=== PATIENT | female | born 1975 | race Caucasian/White ===

== ENCOUNTER 2016-04-17 21:37 | Emergency (ER) | payer OTHER ==
[~2016-04-17] VITALS: Wt 93.5 kg
--- NOTE | 2016-04-18 00:18 | ERD ---
ER Documentation Chief Complaint Date/Time DATE: 04/18/16 TIME: 00:18 Chief Complaint right arm pain, box fell on arm 1 month ago HPI 41-year-old female presents with chief complaint of bilateral arm pain times x month. She states that at times she feels numbness in her fingers and a tingling sensation. She reports that she had a work injury in January when a box fell on her arm however symptoms of that injury resolved and she had already seen a provider at that time. She says that this symptom is new. Associated symptoms include mild neck pain. She denies loss of range of motion, loss of bowel control, urinary incontinence, lower extremity/saddle paresthesia , erythema, swelling, fever, slurring of speech, altered mental status, and recent trauma. She has has not taken any medications for relief of her symptoms. States the pain is aggravated by raising her arm. ROS All systems reviewed and are negative except as per history of present illness. Medications Home Meds Active Scripts Naproxen* (Naprosyn*) 500 Mg Tablet, 500 MG PO BID for 15 Days, #30 TAB Prov:Juliann Cordova PA-C 04/18/16 Cyclobenzaprine Hcl* (Cyclobenzaprine Hcl*) 10 Mg Tablet, 10 MG PO Q8 Y for MUSCLE SPASMS, #20 TAB Prov:Juliann Cordova PA-C 04/18/16 Methylprednisolone* (Medrol* DOSE PACK) 4 Mg/Dose-Pack Tab.ds.pk, 4 MG PO . DIRECTED for 5 Days, #1 PACKET Prov:Juliann Cordova PA-C 04/18/16 Allergies Allergies: Coded Allergies: No Known Drug Allergies (Verified Allergy, Unknown, 04/17/16) PMhx/Soc History of Surgery: Yes ( X2) Anesthesia Reaction: No Hx Neurological Disorder: No Hx Respiratory Disorders: No Hx Cardiac Disorders: Yes (HTN) Hx Psychiatric Problems: No Hx Miscellaneous Medical Probl: No Hx Alcohol Use: Yes Hx Substance Use: No Hx Tobacco Use: Yes (3- 4CIGARETTES/DAY) Smoking Status: Current every day smoker Physical Exam Vitals Vital Signs Date Time Temp Pulse Resp B/P Pulse Ox O2 Delivery O2 Flow Rate FiO2 04/18/16 00:40 98.5 75 18 112/71 100 Room Air 04/17/16 21:41 98.5 80 20 138/78 100 Physical Exam GENERAL: Non-toxic. No apparent signs of distress. HEENT: Atraumatic. Bilateral eyes are PERRL EOM intact. Normal conjunctiva, no injection. No eyelid or lower eyelid swelling noted. Ears: Normal tympanic membrane, no erythema or bulging. No ear canal swelling. No ear discharge. Nose : no nasal discharge. Throat: Oropharynx normal. Tongue pink and moist. No tonsillar swelling or tonsillar exudates. No lymphadenopathy. LUNGS: Clear to auscultation. No accessory muscle use. No wheezing, no crackles. No signs or symptoms of respiratory distress. HEART: Regular rate and rhythm. No murmurs, clicks, rubs or gallops. ABDOMEN: Soft, nontender and nondistended. Bowel sounds positive. No rebound or guarding. No gross peritoneal signs. No Talley or McBurney point tenderness. No gross masses. BACK: No midline tenderness, no costovertebral tenderness. Tenderness to palpation over left trapezius. No ecchymosis, erythema or crepitus in this area. EXTREMITIES: No peripheral cyanosis or edema. No focal pain or notable trauma. Full range of motion. Pain with straight arm raise on left side . 2+ radial pulses bilaterally. Good capillary refill. NEURO: 5 out of 5 fiscal accounting clerk strength bilateral hands. The patient moves all 4 extremities with 5/5 strength. Cranial nerves are grossly intact. Normal mental status for age. Good muscle tone. SKIN: There is no apparent rash, petechiae, erythema or swelling. Good skin turgor. Results 24 hrs Current Medications Medications (Trade) Dose Ordered Sig/Mg Route PRN Reason Start Time Stop Time Status Last Admin Dose Admin Acetaminophen/ Hydrocodone Bitart ([place] (5/325)) 1 tab ONCE ONCE PO 04/18/16 00:30 04/18/16 00:31 DC 04/18/16 00:31 Procedures/MDM Patient stated that her symptoms of an ongoing for 1 month. She reports mild neck pain and on exam of tenderness over the left trapezius in addition she has tenderness with straight arm raise on the left side area. She reports intermittent tingling and numbness in her left hand. However her neurological exam is normal, she has no neurologic deficits. Bilateral 5 strain and bilateral upper extremities and 5 out of 5 fiscal accounting clerk strength bilaterally. She has no signs of neurovascular compromise, 2+ radial pulses bilaterally with good capillary refill. She has had no recent trauma in the areas, and imaging is not warranted at this time. Patient's symptoms and physical exam findings are consistent with cervical radiculopathy and possible muscle spasm/strain. I explained to her that an MRI or CT scan will not be ordered in the ER today, based on the fact that the patient's symptoms are chronic in nature and not due to traumatic injury. I suggested that she follow up with PCP for referral to ortho for further workup. However this time due to exacerbation of her radiculopathy I explained that the providing a short dose of steroids to give her symptomatic relief. In addition I'll be giving a muscle relaxant an NSAID for relief of her pain and possible muscle spasm over left trapezius, - Medrol Dosepak for cervical radiculopathy - Naproxen for pain relief - Flexeril for muscle spasm, sedating effects of this medication were discussed and patient advised to not drive or operate heavy machinery while taking it. At this time I have low suspicion for cord compression, cauda equina syndrome, fracture, dislocation, CVA, neurovascular compromise, and compartment syndrome. Patient is stable for discharge and outpatient management. Advised to follow-up with PCP for orthopedic referral in one to 2 days. Departure Diagnosis: Primary Impression: Bilateral arm pain Additional Impressions: Cervical radiculopathy Muscle spasm Condition: Good Patient Instructions: Muscle Spasm, Radiculopathy, Cervical Juliann Cordova PA-C Apr 18, 2016 00:18
[2016-04-18] MEDS ORDERED: CYCL-319 PO (00:22)
[2016-04-18] MEDS ORDERED: NAPR-260 PO (00:22)
[2016-04-18] MEDS ORDERED: MED4DP PO (00:22)
[2016-04-18] MEDS ORDERED: HYDROCODONE/APAP (5/325) TAB PO ONE (00:30)
[2016-04-18 00:40] VITALS: BP 112/71; PULSE 75; RESP 18; TEMP 98.5
== END 2016-04-18 00:41 | disposition home or self-care (01) ==
LOC: FTE 21:37
DX: M79.601 Pain in right arm (principal); F17.210 Nicotine dependence, cigarettes, uncomplicated; I10 Essential (primary) hypertension; M54.12 Radiculopathy, cervical region
CPT/HCPCS: Z7502; Z7610; 99284

== ENCOUNTER 2016-08-31 13:49 | Emergency (ER) | payer OTHER ==
[~2016-08-31] VITALS: Ht 162.6 cm; Wt 90.0 kg
[~2016-08-31 13:49] MED LIST: CYCL-319 PO; MED4DP PO; NAPR-260 PO
[2016-08-31 13:55] VITALS: Ht 162.6 cm; Wt 90.0 kg
[2016-08-31] MEDS ORDERED: SOD CHLORIDE 0.9% 500 ML IV STA (14:19)
[2016-08-31] MEDS ORDERED: LORAZEPAM 2 MG INJ IV ONE (14:30)
[2016-08-31 14:46] LABS: ADD SCAN DIFF NO
[2016-08-31 14:48] LABS: BASOPHIL # 0.1 10^3/ul (0.0-0.1); BASOPHILS % 0.8 % (0.0-2.0); EOSINOPHILS # 0.1 10^3/ul (0.0-0.5); EOSINOPHILS % 1.1 % (0.0-7.0); HEMOGLOBIN 13.8 g/dl (12.0-16.0); LYMPHOCYTES # 2.1 10^3/ul (0.8-2.9); LYMPHOCYTES % 33.8 % (15.0-51.0); MEAN CORPUSCULAR HEMOGLOBIN 28.2 pg (29.0-33.0); MEAN CORPUSCULAR HGB CONC 32.9 g/dl (32.0-37.0); MEAN CORPUSCULAR VOLUME 85.7 fl (82.0-101.0); MEAN PLATELET VOLUME 9.8 fl (7.4-10.4); MONOCYTE # 0.6 10^3/ul (0.3-0.9); NEUTROPHIL # 3.4 10^3/ul (1.6-7.5); PLATELET COUNT 329 10^3/UL (140-415); RED CELL DISTRIBUTION WIDTH 13.9 % (11.5-14.5); WHITE BLOOD COUNT 6.1 10^3/ul (4.8-10.8)
[2016-08-31 15:09] LABS: CALCIUM 9.4 mg/dl (8.4-10.2); CREATININE 0.71 mg/dl (0.44-1.00); POTASSIUM 4.1 mmol/L (3.5-5.1)
--- NOTE | 2016-08-31 15:15 | ERD ---
ER Documentation Chief Complaint Date/Time DATE: 08/31/16 TIME: 15:13 Chief Complaint Hyperventilation with no obvious cause. HPI tie cutter use. 41-year-old female no past medical history who presents to the emergency room with hyperventilation. EMS reports that the patient was eating just prior to arrival. Patient states that she started became lightheaded feeling anxious and short of breath. She was found hyperventilating with carpopedal spasms. The patient appears very anxious upon arrival. She denies any chest pain, no pleuritic pain no fevers or chills no abdominal pain, she does have chronic back pain that is unchanged. Mild social stressors at home but not significantly changed. ROS All systems reviewed and are negative except as per history of present illness. Medications Home Meds Discontinued Scripts Naproxen* (Naprosyn*) 500 Mg Tablet, 500 MG PO BID for 15 Days, #30 TAB Prov:Juliann Cordova PA-C 04/18/16 Cyclobenzaprine Hcl* (Cyclobenzaprine Hcl*) 10 Mg Tablet, 10 MG PO Q8 Y for MUSCLE SPASMS, #20 TAB Prov:Juliann Cordova PA-C 04/18/16 Methylprednisolone* (Medrol* DOSE PACK) 4 Mg/Dose-Pack Tab.ds.pk, 4 MG PO . DIRECTED for 5 Days, #1 PACKET Prov:Juliann Cordova PA-C 04/18/16 Allergies Allergies: Coded Allergies: No Known Drug Allergies (Verified Allergy, Unknown, 04/17/16) PMhx/Soc History of Surgery: Yes ( X2) Anesthesia Reaction: No Hx Neurological Disorder: No Hx Respiratory Disorders: No Hx Cardiac Disorders: Yes (HTN) Hx Psychiatric Problems: No Hx Miscellaneous Medical Probl: No Hx Alcohol Use: Yes Hx Substance Use: No Hx Tobacco Use: Yes (3- 4CIGARETTES/DAY) Smoking Status: Current every day smoker FmHx Family History: No diabetes Physical Exam Vitals Vital Signs Date Time Temp Pulse Resp B/P Pulse Ox O2 Delivery O2 Flow Rate FiO2 08/31/16 13:55 98.4 101 30 134/86 99 Physical Exam General: Initially anxious and hyperventilating but improving with time now conversive and talking on her cellular phone Head: Normocephalic, atraumatic. Eyes: Pupils equally reactive, EOM intact ENT: Moist mucous membranes Neck: Supple, no lymphadenopathy Respiratory: Lungs clear bilaterally, no distress Cardiovascular: RRR, no murmurs, rubs, or gallops Abdominal: Soft, non-tender, non-distended, no peritoneal signs : Deferred MSK: No edema, no unilateral swelling, 5/5 strength Neurologic: Alert and oriented, moving all extremities, normal speech, no focal weakness, no cerebellar signs Skin: No rash Psych: Anxious Result Diagram: 08/31/16 1425 08/31/16 1425 Results 24 hrs Laboratory Tests Test 08/31/16 14:25 White Blood Count 6.110^3/ul Red Blood Count 4.9010^6/ul Hemoglobin 13.8g/dl Hematocrit 42.0% Mean Corpuscular Volume 85.7fl Mean Corpuscular Hemoglobin 28.2pg Mean Corpuscular Hemoglobin Concent 32.9g/dl Red Cell Distribution Width 13.9% Platelet Count 97945^3/UL Mean Platelet Volume 9.8fl Neutrophils % 55.0% Lymphocytes % 33.8% Monocytes % 9.0% Eosinophils % 1.1% Basophils % 0.8% Nucleated Red Blood Cells % 0.0/100WBC Neutrophils # 3.410^3/ul Lymphocytes # 2.110^3/ul Monocytes # 0.610^3/ul Eosinophils # 0.110^3/ul Basophils # 0.110^3/ul Nucleated Red Blood Cells # 0.010^3/ul Sodium Level 140mmol/L Potassium Level 4.1mmol/L Chloride Level 103mmol/L Carbon Dioxide Level 27mmol/L Anion Gap 14 Blood Urea Nitrogen 14mg/dl Creatinine 0.71mg/dl Glucose Level 95mg/dl Calcium Level 9.4mg/dl Serum HCG, Qualitative NEGATIVE Current Medications Medications (Trade) Dose Ordered Sig/Mg Route PRN Reason Start Time Stop Time Status Last Admin Dose Admin Sodium Chloride (NS) 500 ml @ 500 mls/hr Q1H STAT IV 08/31/16 14:19 08/31/16 15:18 DC 08/31/16 14:41 Lorazepam (Ativan) 0.5 mg ONCE ONCE IV 08/31/16 14:30 08/31/16 14:31 DC 08/31/16 14:41 Procedures/MDM EKG, MONITORS, & DIAGNOSTIC IMAGING: EKG: I reviewed and interpreted a 12-lead EKG. Rhythm: Normal sinus rhythm Ectopy: None Intervals: No abnormalities ST segments: No elevations or depressions T waves: No contiguous inversions Chest x-ray: I reviewed and interpreted a 1 view of the chest Mediastinum: No enlargement Cardiac silhouette: No cardiomegaly Airspace: Clear lung hansen bilaterally without evidence of pneumothorax Bones: No evidence of fracture LAB INTERPRETATION: No anemia, negative hCG, normal electrolytes MEDICAL DECISION MAKING: The patient presents with classic signs and symptoms very consistent with acute hyperventilation syndrome. She had carpal pedal spasms and hyperventilation. Unclear trigger at this point, consider anxiety though no significant change in her social stressors. The patient has no risk factors for early cardiac disease no signs or symptoms concerning for pulmonary embolism. The patient will benefit from basic blood work to rule out anemia, electrolyte disturbance, chest x-ray and EKG. I do not believe a troponin or d-dimer necessary given very low clinical concern for cardiac or pulmonary embolism process. ER COURSE: The patient was given IV fluids, anxiety medication. She has improved symptomatology. Her laboratory testing and diagnostic imaging are unrevealing. At this time I believe the patient can be safely discharged home with close primary care follow-up. Again her history is very consistent with acute hyperventilation syndrome of unclear etiology. I kept the patient and/or family informed of laboratory and diagnostic imaging results throughout the emergency room course. DISPOSITION PLAN: We discussed follow up with the patient's primary care doctor within 24 to 48 hours as needed. We also discussed return to the emergency room for worsening symptoms or worsening condition. Outpatient referral: [None required] Departure Diagnosis: Primary Impression: Acute hyperventilation syndrome Condition: Stable RAMIREZ RODGERS MD Aug 31, 2016 15:15
--- NOTE | 2016-08-31 15:23 | RADRPT ---
PROCEDURE: XR Chest AP portable CLINICAL INDICATION: Short of breath TECHNIQUE: An AP portable radiograph of the chest was submitted. COMPARISON: None. FINDINGS: Support Hardware: None Cardiovascular: The cardiovascular silhouette appears unremarkable. Lung Hansen: The lung hansen appear clear with no nodule, alveolar infiltrate, or interstitial promi nence evident. Pleural Spaces: No pneumothorax or pleural effusion is identified. Osseous Structures: The osseous structures appear intact. Soft Tissues: The soft tissues appear generous. IMPRESSION: Unremarkable portable chest. Physician Kandice Date Time Electronically viewed and signed by Piper Lopes Physician on 08/31/2016 15:23 RH/
[2016-08-31 16:01] VITALS: BP 108/60; PULSE 83; RESP 18; TEMP 98.2
[2016-08-31] MEDS ORDERED: LORA1TAB PO (16:04)
== END 2016-08-31 16:16 | disposition home or self-care (01) ==
LOC: E/R 13:49
DX: F45.8 Other somatoform disorders (principal); I10 Essential (primary) hypertension; F17.210 Nicotine dependence, cigarettes, uncomplicated
CPT/HCPCS: 71010; 80048; 84703; 85025; 93005; 96374; J2060; J7040; Z7502

== ENCOUNTER 2017-08-20 16:11 | Emergency (ER) | END 2017-08-20 17:00 | disposition home or self-care (01) ==

== ENCOUNTER 2017-12-08 15:10 | Emergency (ER) | END 2017-12-08 18:06 | disposition home or self-care (01) ==